=== PATIENT | male | born 1955 | race Caucasian/White ===

== ENCOUNTER 2017-02-19 10:59 | Emergency (ER) | payer BC ==
[~2017-02-19] VITALS: Ht 170.2 cm; Wt 68.2 kg
[2017-02-19] MEDS ORDERED: PLAV1TAB2 PO (11:11)
[2017-02-19] MEDS ORDERED: BIMA01SOL (11:11)
[2017-02-19] MEDS ORDERED: ALPH0.156 (11:11)
[2017-02-19] MEDS ORDERED: DORZ2SOL5 OP (11:11)
[2017-02-19] MEDS ORDERED: ATOR40TA75 PO (11:11)
[2017-02-19] MEDS ORDERED: ASPIRIN 81 MG CHEW TABLET PO ONE (11:45)
[2017-02-19 11:56] LABS: BASO % 0.7 % (0.0-1.0); EOS % 0.8 % (0.0-3.0); LARGE UNSTAINED CELL # 0.1 K/mm3 (0.0-0.4); LARGE UNSTAINED CELL % 1.9 % (0.0-4.0); LYMPH % 19.3 % (24.0-44.0); MEAN CORPUSCULAR HEMOGLOBIN 32.3 pg (27.0-33.0); MEAN CORPUSCULAR HGB CONC 35.4 g/dl (32.0-36.5); MEAN CORPUSCULAR VOLUME 91.1 fl (80.0-96.0); MONO # 0.3 K/mm3 (0.0-0.8); MONO % 6.1 % (0.0-5.0); NEUTROPHILS # 3.5 K/mm3 (1.8-7.7); NEUTROPHILS % 71.3 % (36.0-66.0); PLATELET COUNT, AUTOMATED 191 k/mm3 (150-450); RED CELL DISTRIBUTION WIDTH 12.6 % (11.5-14.5); WHITE BLOOD COUNT 4.9 K/mm3 (4.0-10.0)
[2017-02-19 12:07] LABS: ALBUMIN 3.9 GM/DL (3.2-5.2); ALBUMIN/GLOBULIN RATIO 1.22 (1.00-1.93); ALKALINE PHOSPHATASE 79 U/L (45-117); ALT/SGPT 25 U/L (12-78); ANION GAP 5 MEQ/L (8-16); AST/SGOT 22 U/L (15-37); BILIRUBIN,DIRECT 0.2 MG/DL (0.0-0.2); BILIRUBIN,TOTAL 0.6 MG/DL (0.2-1.0); BLOOD UREA NITROGEN 15 MG/DL (7-18); CALCIUM LEVEL 8.9 MG/DL (8.8-10.2); CARBON DIOXIDE LEVEL 28 MEQ/L (21-32); CHLORIDE LEVEL 108 MEQ/L (98-107); GLOMERULAR FILTRATION RATE > 60.0 (>49); GLUCOSE, FASTING 106 MG/DL (80-110); POTASSIUM SERUM 4.4 MEQ/L (3.5-5.1); SODIUM LEVEL 141 MEQ/L (136-145); TOTAL PROTEIN 7.1 GM/DL (6.4-8.2)
--- NOTE | 2017-02-19 14:07 | REP ---
AP PORTABLE CHEST: 02/19/2017. Clinical history: Chest pain. Findings: No prior study. Two views were used to cover the entirety of the chest. Lungs are well inflated. CP angles are sharply defined. There is no pleural effusion, lateral pleural thickening, apical scar or pneumothorax. No infiltrate or mass. Heart not enlarged. Some mild venous hypertension noted without pulmonary edema. The aorta and airway intact. Bones unremarkable. Impression: 1. No infiltrate, effusion or cardiomegaly. There is some mild pulmonary venous hypertension without edema. Signed by Ray Suarez MD 02/19/2017 06:17 P
[2017-02-19] MEDS ORDERED: ISOVUE-370 76% 100ML VIAL (Q9967) As Ordered ONE (14:50)
[2017-02-19 17:58] VITALS: BP 133/71
--- NOTE | 2017-02-19 18:12 | ECGEPIP ---
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
--- NOTE | 2017-02-19 18:13 | ECGEPIP ---
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
--- NOTE | 2017-02-19 18:16 | ECGEPIP ---
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
--- NOTE | 2017-02-20 06:43 | REP ---
CT ANGIOGRAM CHEST: 02/19/2017. Comparison: Portable chest x-ray today. Technique: Bolus of 75 ml Isovue [address] pulmonary angiogram protocol. Scanning through the chest and thick slab coronal and sagittal MIP reformats are reviewed. Findings: Some dependent atelectatic changes seen in the mid and lower lung zones. No pleural effusion, pleural thickening or pleural based mass. There is no nodule, acute infiltrate or other significant finding. No evidence of pneumothorax or pneumomediastinum. I see no hiatal hernia. Esophagus unremarkable. The aorta without aneurysm or dissection. The main, right and left pulmonary arteries within the mediastinum are without filling defect or vessel cutoff. The lobar, segmental and the subsegmental pulmonary arteries seen bilaterally are without filling defects. No pathologic sized mediastinal or hilar nodes. No axillary or supraclavicular mass. Thyroid lobes symmetric. Sternum, manubrium, medial clavicles, portions of humeral heads and scapula were all intact. Visualized ribs and spine show no fracture or compression deformity. There are small marginal osteophytes mid and lower thoracic region. In the upper abdomen, that portion of liver and spleen included were grossly intact and without mass or ascites. Gallbladder shows no calcified stone. Abundant stool in the flexures. Adrenal glands were normal. Impression: 1. There is no CT evidence of pulmonary thromboembolism. No aortic aneurysm or dissection. 2. Minimal dependent atelectatic change without nodule, mass, acute infiltrate, chest wall lesion or other significant finding. Signed by Ray Suarez MD 02/20/2017 07:54 A
== END 2017-02-19 18:00 | disposition home or self-care (01) ==
LOC: M ED 10:59
DX: R07.89 Other chest pain (principal); R00.1 Bradycardia, unspecified; I25.10 Atherosclerotic heart disease of native coronary artery without angina pectoris; I10 Essential (primary) hypertension; E78.5 Hyperlipidemia, unspecified; Z95.5 Presence of coronary angioplasty implant and graft; Z82.49 Family history of ischemic heart disease and other diseases of the circulatory system; Z79.899 Other long term (current) drug therapy; Z88.0 Allergy status to penicillin; Z88.2 Allergy status to sulfonamides; Z91.040 Latex allergy status
CPT/HCPCS: 71010; 71275; 80048; 80076; 82550; 82553; 83690; 84443; 85025; 93005; 93041; 94760; 99285; Q9967

== ENCOUNTER → 2018-02-16 | Outpatient (CLI) | payer BC | LOC: M ADAMS 13:41 | DX: S20.212A Contusion of left front wall of thorax, initial encounter (principal); W18.30XA Fall on same level, unspecified, initial encounter; Y92.009 Unspecified place in unspecified non-institutional (private) residence as the place of occurrence of the external cause | CPT/HCPCS: 71101 ==

== ENCOUNTER → 2023-12-12 | Outpatient (CLI) | payer BC ==
[~2023-12-12] MED LIST: ALPH0.156; ATOR40TA75 PO; BIMA01SOL; CLOP75TA99 PO; DORZ2SOL5 OP
== END ==
LOC: M WUC 09:23
PROVIDERS: ATTEND Physician Assistant
DX: S30.0XXA Contusion of lower back and pelvis, initial encounter (principal); W10.8XXA Fall (on) (from) other stairs and steps, initial encounter; M46.1 Sacroiliitis, not elsewhere classified; M47.9 Spondylosis, unspecified; Y93.9 Activity, unspecified; Y92.9 Unspecified place or not applicable

== ENCOUNTER → 2024-02-26 | Outpatient (CLI) | payer MEDICARE, BC | LOC: M WUC 12:11 | PROVIDERS: ATTEND Nurse Practitioner Family | DX: R05.9 Cough, unspecified (principal) ==

== ENCOUNTER → 2024-04-12 | Outpatient (CLI) | payer MEDICARE, BC ==
[2024-04-12 10:50] LABS: CHOLESTEROL RISK RATIO 3.77 (<5); LDL CHOLESTEROL 102.4 MG/DL (<100)
== END ==
LOC: M WUC 08:24
PROVIDERS: ATTEND Internal Medicine
DX: E78.5 Hyperlipidemia, unspecified (principal)

== ENCOUNTER → 2024-04-16 | Outpatient (CLI) | payer MEDICARE, BC ==
[2024-04-16 17:23] LABS: BASO % 0.6 % (0.0-1.0); EOS # 0.1 10^3/uL (0.0-0.5); EOS % 1.1 % (0.0-3.0); HEMATOCRIT 45.7 % (42.0-52.0); HEMOGLOBIN 15.4 g/dl (13.5-17.5); LYMPH # 1.4 10^3/uL (1.5-5.0); LYMPH % 21.5 % (24.0-44.0); MEAN CORPUSCULAR HEMOGLOBIN 31.8 pg (27.0-33.0); MEAN CORPUSCULAR HGB CONC 33.7 g/dl (32.0-36.5); MEAN CORPUSCULAR VOLUME 94.2 fl (80.0-96.0); MONO # 0.6 10^3/uL (0.0-0.8); MONO % 8.9 % (2.0-8.0); NEUTROPHILS # 4.2 10^3/uL (1.5-8.5); NEUTROPHILS % 67.7 % (36.0-66.0); PLATELET COUNT, AUTOMATED 239 10^3/uL (150-450); RED BLOOD COUNT 4.85 10^6/uL (4.30-6.10); WHITE BLOOD COUNT 6.3 10^3/uL (4.0-10.0)
[2024-04-19 23:17] LABS: LYME TOTAL ANTIBODY CIA <= 0.90 Index (<=0.90)
== END ==
LOC: M WUC 11:57
PROVIDERS: ATTEND Physician Assistant
DX: M79.10 Myalgia, unspecified site (principal); Z79.899 Other long term (current) drug therapy

== ENCOUNTER → 2025-02-06 | Outpatient (CLI) | payer MEDICARE, BC ==
[2025-02-06 12:37] LABS: BASO # 0.0 10^3/uL (0.0-0.2); BASO % 0.8 % (0.0-1.0); EOS # 0.1 10^3/uL (0.0-0.5); EOS % 2.1 % (0.0-3.0); LYMPH # 1.5 10^3/uL (1.5-5.0); LYMPH % 31.0 % (24.0-44.0); MONO # 0.6 10^3/uL (0.0-0.8); MONO % 12.0 % (2.0-8.0); NEUTROPHILS # 2.6 10^3/uL (1.5-8.5); NEUTROPHILS % 53.9 % (36.0-66.0); PLATELET COUNT, AUTOMATED 213 10^3/uL (150-450)
[2025-02-06 12:42] LABS: PROSTATIC SPECIFIC AG MONITOR 1.05 NG/ML (< 4.00)
[2025-02-06 12:47] LABS: ALT/SGPT 35 U/L (7.0-40); AST/SGOT 37 U/L (<34); CALCIUM LEVEL 9.1 MG/DL (8.3-10.6); CARBON DIOXIDE LEVEL 26 MMOL/L (20-31); CHLORIDE LEVEL 107 MMOL/L (98-107); CHOLESTEROL LEVEL 97 MG/DL (<200); CHOLESTEROL RISK RATIO 1.95 (<5); CREATININE FOR GFR 0.89 MG/DL (0.70-1.30); GLOMERULAR FILTRATION RATE > 90.0 (>49); LDL CHOLESTEROL 30.1 MG/DL (<100); NON-HDL-C 47.3 MG/DL; POTASSIUM SERUM 4.5 MMOL/L (3.5-5.1); SODIUM LEVEL 143 MMOL/L (136-145); TRIGLYCERIDES LEVEL 86 MG/DL (<150)
[2025-02-06 12:59] LABS: ESTIMATED AVERAGE GLUCOSE 108.0 MG/DL (60-110)
== END ==
LOC: M WUC 08:24
PROVIDERS: ATTEND Registered Nurse
DX: Z00.00 Encounter for general adult medical examination without abnormal findings (principal); Z79.899 Other long term (current) drug therapy

== ENCOUNTER 2025-03-23 01:44 | Emergency (ER) | payer MEDICARE, BC ==
[~2025-03-23] VITALS: Ht 172.7 cm; Wt 75.0 kg
[2025-03-23 01:53] VITALS: TEMP 97.2
[2025-03-23 02:18] LABS: BASO # 0.0 10^3/uL (0.0-0.2); BASO % 0.6 % (0.0-1.0); EOS # 0.1 10^3/uL (0.0-0.5); EOS % 2.3 % (0.0-3.0); LYMPH # 1.8 10^3/uL (1.5-5.0); LYMPH % 35.2 % (24.0-44.0); MONO # 0.6 10^3/uL (0.0-0.8); MONO % 11.1 % (2.0-8.0); NEUTROPHILS # 2.6 10^3/uL (1.5-8.5); NEUTROPHILS % 50.6 % (36.0-66.0); PLATELET COUNT, AUTOMATED 200 10^3/uL (150-450)
[2025-03-23 02:32] LABS: KETONE, URINE AUTO RFX NEGATIVE (NEGATIVE); LEUKOCYTE ESTERASE UR AUTO RFX NEGATIVE (NEGATIVE); MUCUS, URINE RFX SMALL (NEGATIVE); NITRITE, URINE AUTO RFX NEGATIVE (NEGATIVE); RBC, URINE AUTO RFX 0 /HPF (0-3); SQUAM EPITHELIAL CELL UR AURFX 0 /HPF (0-6); WBC, URINE AUTO RFX 0 /HPF (0-3)
[2025-03-23 02:41] LABS: ALT/SGPT 31.0 U/L (7.0-40); AST/SGOT 31.0 U/L (<34); CALCIUM LEVEL 9.4 MG/DL (8.3-10.6); CARBON DIOXIDE LEVEL 28.0 MMOL/L (20-31); CHLORIDE LEVEL 106.0 MMOL/L (98-107); CREATININE FOR GFR 1.0 MG/DL (0.70-1.30); GLOMERULAR FILTRATION RATE 82.0 (>49); POTASSIUM SERUM 3.7 MMOL/L (3.5-5.1); SODIUM LEVEL 144.0 MMOL/L (136-145)
[2025-03-23 04:33] VITALS: BP 121/63; O2SAT 97
== END 2025-03-23 05:03 | disposition home or self-care (01) ==
LOC: M ED 01:44
DX: R10.9 Unspecified abdominal pain (principal); E78.5 Hyperlipidemia, unspecified; Z86.79 Personal history of other diseases of the circulatory system; Z88.2 Allergy status to sulfonamides; Z88.1 Allergy status to other antibiotic agents; Z91.040 Latex allergy status; Z79.02 Long term (current) use of antithrombotics/antiplatelets; Z79.899 Other long term (current) drug therapy